=== PATIENT | female | born 1995 | race African-American/Black ===

== ENCOUNTER → 2024-04-19 | Outpatient (CLI) | payer MEDICAID, SELFPAY ==
[2024-04-19 18:35] LABS: HIV - WCH Non-Reactive (Nonreactive); Hepatitis B Surface Antibody Non-Reactive; Hepatitis B Surface Antigen Non-Reactive (Nonreactive); Hepatitis C Antibody Non-Reactive (Nonreactive); Syphilis Antibodies Non-reactive
[2024-04-21 07:08] LABS: Hepatitis B Core Ab Total Negative (Negative)
== END | disposition home or self-care (01) ==
LOC: LABSPEC 15:09
PROVIDERS: Visit Provider Nurse Practitioner Family
DX: Z11.3 Encounter for screening for infections with a predominantly sexual mode of transmission (principal)
CPT/HCPCS: 86703; 86704; 86706; 86780; 86803; 87340